=== PATIENT | female | born 2005 | race Caucasian/White ===

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

== ENCOUNTER 2024-10-24 19:08 | Emergency (ER) | payer OTHER ==
--- NOTE | 2024-10-24 19:15 | ERPHSYRPT ---
- History of Present Illness Time Seen by Provider: 10/24/24 19:15 Source: patient, family Exam Limitations: no limitations Physician History: This is a 19-year-old white female patient who presents to the emergency department with pain swelling and bruising of the dorsal aspect of her right foot. She arrives by private vehicle accompanied by family. Patient states that her horse accidentally stepped on her right foot yesterday. Patient did go to work all day today. However the pain was worse and she was having trouble getting off her shoe. There are no other complaints of pain sites or injury sites. Patient's primary care provider is Dr. Collins Method of Injury: direct blow Occurred: yesterday Quality: aching Severity of Pain-Max: moderate Severity of Pain-Current: mild (To moderate) Lower Extremities Pain: foot: right (Dorsal aspect) Modifying Factors: Improves With: movement, other (Ambulating) Associated Symptoms: other (Patient can stand and can ambulate but there is tenderness present) Allergies/Adverse Reactions: amoxicillin Allergy (Mild, Verified 10/24/24 19:14) Vomiting Home Medications: Cyanocobalamin 1000 Mcg/ml [Cyanocobalamin B-12 1000 MCG/ML] 1,000 mcg IJ .MONTHLY 10/24/24 [History] Medroxyprogesterone Acetate 150 mg IJ .[id number] 10/24/24 [History] Hx Tetanus, Diphtheria Vaccination/Date Given: Yes Hx Influenza Vaccination/Date Given: Yes Hx Pneumococcal Vaccination/Date Given: No Travel Risk - International Travel Have you traveled outside of the country in past 3 weeks: No - Emerging Infectious Disease Are you exhibiting symptoms associated with any current EIDs: No - Review of Systems Constitutional: No Symptoms Eyes: No Symptoms Ears, Nose, & Throat: No Symptoms Respiratory: No Symptoms Cardiac: No Symptoms Abdominal/Gastrointestinal: No Symptoms Genitourinary Symptoms: No Symptoms Musculoskeletal: Injury (Dorsal aspect right foot) Skin: No Symptoms Neurological: No Symptoms Psychological: No Symptoms Endocrine: No Symptoms Hematologic/Lymphatic: No Symptoms Immunological/Allergic: No Symptoms All Other Systems: Reviewed and Negative - Past Medical History Pertinent Past Medical History: Yes ENT History: Other Respiratory History: Other Other Medical History: allergies - Past Surgical History Past Surgical History: Yes Gastrointestinal: Appendectomy Other Surgical History: colon surg 2.5 ft removed Significant Family History: no pertinent family hx - Social History Smoking Status: Never smoker Exposure to second hand smoke: Yes Alcohol Use: None Drug Use: none Patient Lives Alone: No - Nursing Vital Signs Nursing Vital Signs: Initial Vital Signs Temperature 97.3 F 10/24/24 19:15 Pulse Rate 83 10/24/24 19:15 Respiratory Rate 18 10/24/24 19:15 Blood Pressure 135/87 10/24/24 19:15 O2 Sat by Pulse Oximetry 100 10/24/24 19:15 Pain Scale Pain Intensity 8 - Physical Exam General Appearance: no apparent distress, alert, anxiety Eyes, Ears, Nose, Throat Exam: normal ENT inspection, moist mucous membranes Neck Exam: normal inspection, non-tender, supple, full range of motion Cardiovascular/Respiratory Exam: chest non-tender, no respiratory distress Gastrointestinal/Abdominal Exam: non-tender Back Exam: normal inspection, normal range of motion, No CVA tenderness, No vertebral tenderness Hips Exam: bilateral: non-tender, normal inspection, normal range of motion Legs Exam: bilateral leg: non-tender, normal inspection, normal range of motion, no evidence of injury Knees Exam: bilateral knee: non-tender, normal inspection, normal range of motion, no evidence of injury Ankle Exam: bilateral ankle: non-tender, normal inspection, normal range of motion, no evidence of injury Foot Exam: right foot: ecchymosis (Dorsal aspect), soft tissue tenderness (Dorsal aspect), swelling (Dorsal aspect), left foot: non-tender, normal inspection, normal range of motion, no evidence of injury, bilateral foot: bone tenderness (Dorsal aspect) Neuro/Tendon Exam: normal sensation, normal motor functions, normal tendon functions, responds to pain, no evidence tendon injury Mental Status Exam: alert, oriented x 3, cooperative Skin Exam: warm, dry, ecchymosis (Dorsal aspect right foot) SpO2 Interpretation: normal O2 Delivery: Room Air - Course Nursing assessment & vital signs reviewed: Yes Ordered Tests: Active Orders 24 hr Category Date Time Status FOOT (MINIMUM 3 VIEWS) Stat Exams 10/24/24 19:24 Taken - Progress Progress: unchanged, pain not gone completely Progress Note: 10/24/24 20:10 My medical decision making and the assignment of low complexity of this patient's medical issue today is based on review of the patient's past medical history, review the patient's medication list, review the patient drug allergy list, history presence of physical findings on examination. The workup in this patient includes x-ray of the patient's right foot. Differential diagnosis includes but is not limited to contusion right foot, fracture right foot, dislocation right foot I interpreted the preliminary report of this patient's right foot x-ray. Patient understands that I am interpreting only the preliminary report and the final report will be interpreted by the radiologist and this will be done tomorrow. If the impression of the radiologist differs from mine, the patient will receive a phone call from our emergency department. Counseled pt/family regarding: diagnosis, need for follow-up, rad results Medical Desision Making - Independent Historian Additional History obtained from: Family - Diagnostic Testing Diagnostic test were ordered, analyzed, and reviewed by me: Yes Radiological Interpretation: Interpreted by me - Risk of complications Minimal Risk: Minimal risk of morbidity - Departure Departure Disposition: Home Clinical Impression: Contusion of right foot Condition: Stable Critical Care Time: No Referrals: BRODY MAS [Primary Care Provider, [facility]] - Follow up/PCP as directed Additional Instructions: Ice pack to tender area 3 times a day for the next 48 hours. You may also soak the right foot in an ice bath. When not up and ambulating, make sure that you keep the right lower extremity/foot raised above the level of your heart. Use Tylenol and ibuprofen for pain control. As discussed, you may follow-up with your primary care provider or Dr. Looney, our fish hatchery supervisor in his office by making a phone call to his office if your pain persists beyond 72 hours
[2024-10-24 19:24] VITALS: TEMP 97.3; O2SAT 100
[2024-10-24 20:16] VITALS: BP 124/85; PULSE 86; RESP 16
--- NOTE | 2024-10-25 08:47 | XRAY ---
Indication: Pain following injury. Comparison: March 31, 2023 3 nonweightbearing views right foot obtained. Again no bony, articular, or soft tissue abnormalities.
== END 2024-10-24 20:34 | disposition home or self-care (01) ==
LOC: ED 19:08
DX: S90.31XA Contusion of right foot, initial encounter (principal); W55.12XA Struck by horse, initial encounter; Z79.899 Other long term (current) drug therapy
CPT/HCPCS: 73630; 99282; 99283